=== PATIENT | female | born 1990 | race Caucasian/White ===

== ENCOUNTER 2022-01-14 07:20 | Emergency (ER) | payer OTHER, SELFPAY ==
--- NOTE | ~2022-01-14 | XR_ITS ---
EXAMINATION: XR FOOT, LEFT CLINICAL INFORMATION: Pain after injury COMPARISON: None TECHNIQUE: 3 views of the left foot. FINDINGS: The bones and soft tissues are normal. No fracture. Alignment is anatomic. Joint spaces are maintained. XR/XR foot LT min 3V IMPRESSION: Normal left foot.
[2022-01-14 07:30] VITALS: BP 128/61; PULSE 84; RESP 17; TEMP 36.6; O2SAT 98; BMI 18.8
--- NOTE | 2022-01-14 09:45 | ED.LOWEXIN ---
HPI - Extremity Injury (Lower) General Chief Complaint: Extremity Injury, Lower Stated Complaint: l foot inj Time Seen by Provider: 01/14/22 07:22 Source: patient Mode of arrival: ambulatory History of Present Illness HPI Narrative: 31-year-old female with a past medical history of anemia presenting to the ED complaining of left foot pain x1 month s/p mechanical slip and fall down the stairs. Denies head trauma or LOC. Denies more recent injury. Reports associated numbness/tingling MD complaint: foot injury Onset (ago): month(s) Related Data Previous Rx's Medication Instructions Recorded cyclobenzaprine 5 mg tablet 5 mg PO Q8H PRN pain (scale score 01/14/22 7-10) 5 days #14 tabs diclofenac sodium 1 % topical gel 2 g topical QID #100 grams 01/14/22 (Arthritis Pain (diclofenac)) Allergies Allergy/AdvReac Type Severity Reaction Status Date / Time No Known Allergies Allergy Unverified 02/08/20 17:31 Review of Systems Review of Systems: Constitutional: No Fever, No Chills ENT/Mouth: No Ear Pain, No Nasal Congestion, No sore throat, No Rhinorrhea, No Swallowing Difficulty Cardiovascular: No Chest Pain, No SOB Respiratory: No Cough, No Sputum, No Wheezing Gastrointestinal: No Nausea, No Vomiting, No Diarrhea, No Constipation, No Abdominal pain Genitourinary: No Dysuria, No Urinary Frequency, No Hematuria, No Urinary Incontinence/retention Musculoskeletal: + joint pain, No Myalgias, No Joint Swelling Skin: No Skin Lesions, No rash Neuro: No Weakness, + Numbness, + Paresthesias Yes all other systems are reviewed and are negative Constitutional: Constitutional: Reports as per HPI [facility] Past Medical History Attestation statement: The following information was validated with the patient. Social History Social History Advance Directives: No Advance Directives Information Provided: No Physical Exam Vital Signs: Vital Signs: Last Vital Signs Temp 98 F 01/14/22 07:30 Pulse 84 01/14/22 07:30 Resp 17 01/14/22 07:30 BP 128/61 01/14/22 07:30 Pulse Ox 98 01/14/22 07:30 O2 Del Method 01/14/22 07:30 BMI result Body Mass Index 18.8 Const: General: cooperative, healthy appearing and no acute distress Orientation/consciousness: patient oriented x3 Limitations: no limitations HEENT: Head: Yes normal to inspection and Yes atraumatic Ears: hearing grossly normal bilaterally General nose exam: Normal external nose present Face and sinus: Yes normal facial exam Eyes: General: appearance normal, both eyes and all related structures EOM: EOMs intact bilaterally Neck: Neck: Yes normal visual inspection and Yes no meningeal signs Resp: Effort & Inspection: normal respiratory effort and no respiratory distress Cardio: Rate: regular rate Heart sounds: S1 normal heart sound present and S2 normal heart sound present Peripheral pulses: dorsalis pedis present Skin: Rashes: no rashes Wounds: no wounds Neuro: General: patient oriented x3, tone normal and no meningeal signs Gait exam (Neuro): Normal gait present Extrem: Other: Left foot with mild tenderness to palpation to distal plantar aspect. No appreciable swelling/erythema. No deformity or crepitus. Neurovascular intact. Sensation intact to light touch. Full range of motion intact General: Yes normal to inspection, Yes full ROM and Yes capillary refill normal Course Course Course Narrative: XR foot LT min 3V IMPRESSION: Normal left foot. Results discussed with patient including worrisome signs and symptoms and strict return precautions, and when to return to the emergency department. They verbalized understanding and feel safe for discharge at this time. Patient became very upset when trying to discharge as requesting stronger pain medication, discussed with patient at length there is no indication for narcotics at this time. 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 Cohcran and nursing supervisor painting ship[employer] Shantel spoke with patient, came to the decision to discharge patient with Flexeril and diclofenac gel which patient was agreeable MDM - Extremity Injury (Lower) MDM Narrative Medical decision making narrative: 31-year-old female with a past medical history of anemia presenting to the ED complaining of left foot pain x1 month s/p mechanical slip and fall down the stairs. On exam vital signs stable, NAD, nontoxic appearing, physical exam as above. Concern for occult fracture versus sprain Plan: X-ray Medical Records Attestation: I reviewed the patient's medical records. Lab Data Attestation: I reviewed the patient's lab results. Discharge Plan Discharge Clinical Impression: Foot sprain Patient Disposition: Home, Self-Care Instructions: Foot Sprain (ED) Additional Instructions: Your x-ray is unremarkable. Take Tylenol and Motrin at home for pain. Ice. Elevate. Rest. Follow-up with her doctor and Podiatry as needed Flexeril is a muscle relaxer, take at night as it makes you drowsy, do not drive, drink alcohol, or operate machinery while taking it Diclofenac gel is a topical anti-inflammatory gel apply to painful area Prescriptions: New diclofenac sodium [Arthritis Pain (diclofenac)] 1 % gel 2 g topical QID Qty: 100 0RF Rx Instructions: apply to single elbow, wrist or hand; for hand includes palm/fingers/back of hand cyclobenzaprine 5 mg tablet 5 mg PO Q8H PRN (Reason: pain (scale score 7-10)) 5 Days Qty: 14 0RF Referrals: Mynor Moran MD [Primary Care Provider] - aRshawn Lopez MD [Physician] - (as needed)
--- NOTE | 2022-01-14 11:14 | PC.NURSE ---
attempted to discharge patientat 1109. entered room pt stated why aren't you giving me real pain meds? explained to patient that this nurse just came on shift and i would check with provider. reviewed encounter with PRICILA Maurer, reapproached pt an offered APAP per PRICILA Hay instructions. Pt became matt agitated and stated the last person I talked to was so rude I'm on the verge of a freak out I will alivia this hospital redirected to and [facility].
== END 2022-01-14 11:27 | disposition home or self-care (01) ==
PROVIDERS: Emergency Provider Emergency Medicine; PCP Internal Medicine
DX: S93.602A Unspecified sprain of left foot, initial encounter (principal); W10.9XXA Fall (on) (from) unspecified stairs and steps, initial encounter; Y93.9 Activity, unspecified; Y92.9 Unspecified place or not applicable; Y99.9 Unspecified external cause status; Z79.899 Other long term (current) drug therapy
CPT/HCPCS: 73630; 99283